=== PATIENT | male | born 1945 | race Caucasian/White ===

== ENCOUNTER 2018-03-28 11:46 | Inpatient (IN) | payer MEDICARE, OTHER ==
[~2018-03-28] VITALS: Ht 175.3 cm; Wt 65.8 kg
--- NOTE | ~2018-03-28 | CON ---
[address] [address] CONSULTATION Name: CHRISTIANO PARSONS V Room: [address] IN .R.#: [id number] Admission: 03/28/18 Attend Phys: Barb Smith MD Discharge: Date of : 41 Report #: [id number] THIS REPORT FOR: //name// CC: Barb Dan DATE OF SERVICE: 03/29/2018 HISTORY OF PRESENT ILLNESS: The patient is a 72-year-old male who came to the Emergency Room complaining of bilateral lower extremity weakness and change in speech. The patient's son is in the room. Apparently, the patient has a history of depression and is receiving transcranial magnetic stimulation. He is approximately assisted through his treatments when he woke up the morning of admission, he felt unsteady and weak. The patient denies any numbness or tingling in the extremities. He continues to have some difficulty with his speech, although this has improved as well. The patient mentioned to me that perhaps this change in speech was secondary to anxiety, but he also wonders if it could be a side effect of the transcranial magnetic stimulation. PAST MEDICAL HISTORY: Hyperlipidemia, depression, gastroesophageal reflux, hiatal hernia. PAST SURGICAL HISTORY: Tonsillectomy. MEDICATIONS: Multivitamin daily, vitamin D 400 units daily, Seroquel 50 mg at bedtime, simvastatin 10 mg in the evening, temazepam 45 mg at bedtime, alprazolam 0.5 mg q.i.d., Pristiq 50 mg daily, Viagra p.r.n., omeprazole 40 mg b.i.d. ALLERGIES: None. PHYSICAL EXAMINATION: VITAL SIGNS: Temperature is 36.5, pulse rate 50, respiratory rate 18, blood pressure 157/61, bedside pulse oximetry 100% on room air. LABORATORY DATA: White blood cell count 7.9, hemoglobin 16.2, hematocrit 47.1, platelet count 272,000. INR 1. Chemistry: Sodium 140, potassium 4.2, chloride 106, carbon dioxide 29, BUN 16, creatinine 1, glucose 97. Liver functions normal. Triglycerides 209. Cholesterol 165, LDL cholesterol 87, HDL cholesterol 35, B12 is 1474, folate greater than 100. TSH 0.840. NEUROLOGIC: Cranial nerves 2-12 are grossly intact. The patient had some hesitancy in his speech. Motor exam demonstrates symmetrical strength in all 4 extremities with tone and bulk normal, reflexes are symmetrical throughout. Plantar responses are flexor. Coordination reveals intact [id number] with the arms outstretched, the [place] [address] CONSULTATION Name: CHRISTIANO PARSONS V Room: [address] IN ..#: [id number] Admission: 03/28/18 Attend Phys: Barb Smith MD Discharge: Date of : 41 Report #: [id number] IMPRESSION: This patient has a change in speech. This is not neurological. It is most likely secondary to anxiety; however, the patient does plan on speaking to Dr. Posey to see if this could be a side effect of transcranial magnetic stimulation. I doubt it, but I do think it would be worthwhile for the patient to mention this to Dr. Posey. The patient went on to tell me that he has carotid artery disease. He has soft plaque and he feels that this may have brought this episode on. The MRA shows no evidence of significant stenosis of the carotid arteries, so I am not sure where the patient got the idea that he has significant carotid artery disease. At this point, no further diagnostic studies need to be done from a neurological point of view. The patient may be discharged on aspirin 325 mg daily. He needs to follow up with Dr. Posey. By: [id number] Recio DO /nt
[~2018-03-28 11:46] MED LIST: ALENDRONATE SODI5 MG PO; ALPRAZOLAM; AMOXICILLIN; CIPRO500 MG PO; LIPITOR; PRILOSEC40 MG PO; PRISTIQ100 MG; PRISTIQ50 M1 PO; RESTORIL30 MG PO; TUMS PO; UNICOMPLEX M TA1 TA1 PO; VIAGRA50 MG PO; VITAMIN D3400 UNIT PO; XANAX 0.5 MG0.5 MG PO; ZOCOR 10 MG TAB10 MG PO; [UNRECOGNIZED DRUG - OTHER] PO
[2018-03-28 11:51] VITALS: BP 169/70
[2018-03-28 12:10] LABS: ABSOLUTE BASOPHILS 0.1 thou/uL (0.0-0.2); ABSOLUTE EOSINOPHILS 0.2 thou/uL (0.0-0.7); ABSOLUTE LYMPHOCYTES 1.7 thou/uL (0.8-5.3); ABSOLUTE MONOCYTES 0.9 thou/uL (0.0-1.2); ABSOLUTE NEUTROPHILS 5.1 thou/uL (1.6-8.1); BASOPHILS 0.7 %; EOSINOPHILS 2.3 %; HEMATOCRIT 47.1 % (42.0-52.0); HEMOGLOBIN 16.2 gm/dL (14.0-18.0); LYMPHOCYTES 21.3 %; MCH 32.3 pg (26.0-34.0); MCHC 34.5 g/dL (28.0-37.0); MCV 93.7 fL (80.0-100.0); MONOCYTES 11.2 %; MPV 7.6 fl. (7.2-11.1); NUCLEATED RBCS 0 /100WBC; PLATELET COUNT* 272 thou/uL (150-400); POLYS 64.5 %; RBC 5.03 mil/uL (4.50-6.00); RDW-CV 13.1 % (10.5-14.5); WBC 7.9 thou/uL (4.0-11.0)
[2018-03-28] MEDS ORDERED: SEROQUEL 50 MG50 MG PO (12:13)
[2018-03-28] MEDS ORDERED: [UNRECOGNIZED DRUG - OTHER] PO (12:18)
[2018-03-28 12:19] LABS: APTT 27.2 Seconds (25.0-31.3); PROTIME 10.2 Seconds (9.20-11.50)
[2018-03-28 12:20] LABS: ANION GAP 7 mmol/L (7-16); BUN 21 mg/dL (7-18); CALCIUM 9.7 mg/dL (8.5-10.1); CHLORIDE 104 mmol/L (98-107); CO2 31 mmol/L (21-32); CREATININE 1.1 mg/dL (0.6-1.3); GLUCOSE 54 mg/dL (70-99); SODIUM 142 mmol/L (136-145)
[2018-03-28 12:24] LABS: ALBUMIN 4.1 g/dL (3.4-5.0); ALKALINE PHOSPHATASE 128 U/L (46-116); SGOT 17 U/L (15-37); SGPT 26 U/L (30-65); TOTAL BILIRUBIN 0.3 mg/dL (<0.1-1.0); TOTAL PROTEIN 8.4 g/dL (6.4-8.2); TROPONIN-I LEVEL <0.06 ng/mL (<0.06)
[2018-03-28 15:52] LABS: % SATURATION 41 % (20-39); IRON 152 ug/dL (50-175)
[2018-03-28 15:55] VITALS: BP 165/80
--- NOTE | 2018-03-28 16:02 | EKG ---
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
[2018-03-28 16:07] VITALS: BP 175/89
--- NOTE | 2018-03-28 17:59 | 2DMMODE ---
[place] [address] 2 D/M-MODE ECHOCARDIOGRAM Name: CHRISTIANO PARSONS V Room: [address] IN [facility]#: [id number] Admission: 03/28/18 Attend Phys: Barb Smith, Discharge: Date of : 41 Date of Service: 03/28/18 1759 Report #: [id number] THIS REPORT FOR: //name// APPROVED REPORT Study performed: 03/28/2018 15:54:09 EXAM: Comprehensive 2D, Doppler, and color-flow Echocardiogram Patient Location: In-Patient Room #: 220 Status: routine BSA: 1.83 HR: 51 bpm BP: 175/89 mmHg Rhythm: NSR Other Information Study Quality: Excellent Indications Bradycardia 2D Dimensions IVSd: 9.22 (7-11mm) LVOT Diam: 19.84 (18-24mm) LVDd: 46.99 mm PWd: 10.38 (7-11mm) Ascending Ao: 31.21 (22-36mm) LVDs: 35.27 (25-40mm) Aortic Root: 35.74 mm Volumes Left Atrial Volume (Systole) LA ESV Index: 26.10 mL/m2 Aortic Valve AoV Peak Jamar.: 0.99 m/s AO Peak Gr.: 3.95 mmHg LVOT Max P.94 mmHg AO Mean Gr.: 2.04 mmHg LVOT Mean P.14 mmHg LVOT Max V: 0.86 m/s AO V2 VTI: 22.11 cm LVOT Mean V: 0.48 m/s ANAI (VTI): 2.61 cm2 LVOT V1 VTI: 18.66 cm AI [place]: 1.33 m/s2 AI PHT: 826.06 ms Mitral Valve E/A Ratio: 1.04 [place] [address] 2 D/M-MODE ECHOCARDIOGRAM Name: CHRISTIANO PARSONS V Room: [address] IN .R.#: [id number] Admission: 03/28/18 Attend Phys: Barb Smith, Discharge: Date of : 41 Date of Service: 03/28/18 1759 Report #: [id number] MV Decel. Time: 194.76 ms MV E Max Jamar.: 0.60 m/s MV PHT: 56.48 ms MVA (PHT): 3.90 cm2 TDI E/Lateral E': 5.00 E/Medial E': 6.00 Medial E' Jamar.: 0.10 m/s Lateral E' Jamar.: 0.12 m/s Pulmonary Valve PV Peak Jamar.: 0.67 m/s PV Peak Gr.: 1.77 mmHg Tricuspid Valve RAP Estimate: 5.00 mmHg TR Peak Gr.: 22.41 mmHg RVSP: 27.00 mmHg PA Pressure: 27.00 mmHg Left Ventricle The left ventricle is normal size. There is normal LV segmental wall motion. There is normal left ventricular wall thickness. Left ventricular systolic function is normal. The left ventricular ejection fraction is within the normal range. LVEF is 50-55%. The left ventricular diastolic function is normal. Right Ventricle The right ventricle is normal size. The right ventricular systolic function is normal. Atria The left atrium size is normal. The right atrium size is normal. Aortic Valve The aortic valve is normal in structure. Mild aortic regurgitation. There is no aortic valvular stenosis. Mitral Valve The mitral valve is normal in structure. Mild mitral regurgitation. No evidence of mitral valve stenosis. Tricuspid Valve The tricuspid valve is normal in structure. Mild tricuspid regurgitation. No pulmonary hypertension[place] [address] 2 D/M-MODE ECHOCARDIOGRAM Name: JAQUELINE,CHRISTIANO V Room: [address] IN [facility]#: [id number] Admission: 03/28/18 Attend Phys: Barb Smith, Discharge: Date of : 41 Date of Service: 03/28/18 1759 Report #: [id number] The pulmonary valve is normal in structure. There is no pulmonic valvular regurgitation. Great Vessels The aortic root is normal in size. IVC is normal in size and collapses >50% with inspiration. Pericardium There is no pericardial effusion. <Conclusion> LVEF is 50-55%. Mild mitral regurgitation. Mild aortic regurgitation. <ELECTRONICALLY SIGNED> By: Curtis Hunt MD, FACC 03/28/181758 58 58 Curtis Hunt MD, FACC /INF
[2018-03-28 20:00] VITALS: BP 151/73
[2018-03-29] VITALS: BP 116/61
[2018-03-29 04:00] VITALS: BP 121/61
[2018-03-29 06:20] LABS: ALBUMIN 3.2 g/dL (3.4-5.0); ALKALINE PHOSPHATASE 106 U/L (46-116); ANION GAP 5 mmol/L (7-16); BUN 16 mg/dL (7-18); CALCIUM 8.5 mg/dL (8.5-10.1); CHLORIDE 106 mmol/L (98-107); CHOLESTEROL 165 mg/dL (<200); CO2 29 mmol/L (21-32); GLUCOSE 97 mg/dL (70-99); HDL CHOLESTEROL 37 mg/dL (>40); LDL CHOLESTEROL 87 mg/dL (<100); POTASSIUM 4.2 mmol/L (3.5-5.1); SGOT 12 U/L (15-37); SGPT 21 U/L (30-65); SODIUM 140 mmol/L (136-145); TC:HDL 4.5 Ratio (Not establshd); TOTAL BILIRUBIN 0.3 mg/dL (<0.1-1.0); TOTAL PROTEIN 6.2 g/dL (6.4-8.2); TRIGLYCERIDE 209 mg/dL (<150); VLDL 42 mg/dL (<40)
[2018-03-29 06:24] LABS: SERUM ASSESSMENT Clear
[2018-03-29 08:00] VITALS: BP 142/62
--- NOTE | 2018-03-29 10:08 | CON ---
[address] [address] CONSULTATION Name: CHRISTIANO PARSONS V Room: [address] IN .R.#: [id number] Admission: 03/28/18 Attend Phys: Barb Smith MD Discharge: Date of : 41 Report #: [id number] THIS REPORT FOR: //name// CC: Barb Dan MD DATE OF SERVICE: 03/28/2018 HISTORY OF PRESENT ILLNESS: The patient is a 72-year-old white male who I was asked to see in the hospital today after he was noted to be bradycardic. The history is obtained from the patient. Unfortunately, there does not have a lot of old records available. The patient states that his mother of heart attack when she was 70. In the past, he has had a cardiac workup in his 40s that included a Holter monitor and treadmill test. He was told there was no evidence of heart disease. He does not exercise on a regular basis. He has a long history of depression. He is currently receiving left temporal lobe EMG therapy by a psychiatrist. This seems to have helped his depression. Recently, he has had not much of an appetite. He was doing well until 8:00 this morning. He got out of the shower and then noticed that his left foot was drifting to the side. He then noticed his right foot was drifting to the side. He seemed to stumble around. He denied any blurred vision, weakness of his arms. He notes he has had some slurred speech for the past month. He then went to have an EMG therapy on his brain by his psychiatrist. At the psychiatrist, his blood pressure was noted to be elevated. He was instructed to come to the Emergency Room here at [facility]. In the Emergency Room, there was concern he might be having a TIA. He was admitted for further evaluation and treatment. He denied any recent chest pain, shortness of breath, palpitations, syncope. He denied ever been told he had a slow heart rate in the past. PAST MEDICAL HISTORY: He has had previous prostate surgery, tonsillectomy. No history of hypertension. Does have hyperlipidemia. No history of diabetes. MEDICATIONS ON ADMISSION: Consist of Zocor, Xanax as needed. He takes a sleeping pill occasionally. ALLERGIES: No known drug allergies. FAMILY HISTORY: His mother of heart attack when she was 70. SOCIAL HISTORY: He is . He and his live in [place]. 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 Quit smoking years ago. Occasionally drinks alcohol. REVIEW OF SYSTEMS: He has had no history of stroke, asthma. He had a peptic ulcer years ago. He has had a kidney stone. No cancer. [place] [address] CONSULTATION Name: CHRISTIANO PARSONS V Room: [address] IN [facility]#: [id number] Admission: 03/28/18 Attend Phys: Barb Smith MD Discharge: Date of : 41 Report #: [id number] chronic skin condition. PHYSICAL EXAMINATION: GENERAL: Revealed an elderly male, lying in bed, he appeared in no acute distress. VITAL SIGNS: He had a blood pressure of 160/70, his pulse is 48. He was afebrile. HEENT: He was anicteric. Conjunctivae pink. Mucous membranes are moist. NECK: Veins do not appear distended. No carotid bruits. Neck supple. CHEST: Clear to auscultation. CARDIAC: Regular bradycardia, no significant murmur. ABDOMEN: Soft, nontender. EXTREMITIES: Had no edema. Posterior tibial pulse 2+ bilaterally. SKIN: Warm and dry. NEUROLOGIC: Nonfocal. LYMPHATIC: No adenopathy. MUSCULOSKELETAL: No joint effusion. LABORATORY DATA: His ECG shows a sinus bradycardia with voltage criteria for left ventricular hypertrophy, but no ST or T-wave changes. On the monitor, he was noted to have a rare PVC. Workup in the Emergency Room today, sodium 142, creatinine 1.1, glucose is only 91. Liver function studies were normal. Total protein was 8.4, which is mildly elevated. Albumin 4.1. Troponin 0.06. TSH 0.8. B12 1474. White blood cell count 7.9, hemoglobin 16.2. X-rays in the Emergency Room today, he had a CT scan of the head without contrast, which showed atrophy, microvascular changes. Portable chest x-ray, no acute abnormality. The patient actually had a previous episode of hematemesis in 2014, underwent EGD and was found to have a small hiatal hernia, small ulcer. IMPRESSION AND RECOMMENDATIONS: 1. Sinus bradycardia. If symptomatic, would recommend a pacemaker. 2. History of depression. 3. Hyperlipidemia. The patient is on a statin drug. 4. Uncontrolled movements of his feet. Possible transient ischemic attack. 5. History of peptic ulcer disease. 6. History of kidney stone. <ELECTRONICALLY SIGNED> By: Curtis Hunt MD, [facility] 03/29/18 1008 1642 192Curtis Hunt MD, FACC /nt
[2018-03-29 12:32] VITALS: BP 157/61
[2018-03-29 16:11] VITALS: BP 125/71
[2018-03-29 19:40] VITALS: BP 128/86
[2018-03-30] VITALS: BP 131/65
[2018-03-30 02:05] LABS: GLYCOHEMOGLOBIN (HGB A1C) 5.2 % (4.8-5.6)
[2018-03-30 04:00] VITALS: BP 135/69
[2018-03-30 08:20] VITALS: BP 147/76
[2018-03-30] MEDS ORDERED: ASA5UEC PO (10:59)
[2018-03-30] MEDS ORDERED: LIPITOR 20 MG T20 M1 PO (11:00)
[2018-03-30 11:18] VITALS: BP 147/76
[2018-03-30] MEDS ORDERED: ADULT ASPIRIN R81 MG PO (11:38)
[2018-03-30] MEDS ORDERED: PLAVIX 75 MG TA75 M1 PO (11:38)
[2018-03-30 12:04] VITALS: BP 126/79
== END 2018-03-30 12:59 | disposition home or self-care (01) | DRG 68 ==
LOC: M.ERS 11:46 → M.2W 13:14 → M.TBA-ER 13:14 → M.2W 15:56
PROVIDERS: Emergency Medicine Emergency Medical Services; ADMIT Internal Medicine
DX: I65.23 Occlusion and stenosis of bilateral carotid arteries (principal); G93.40 Encephalopathy, unspecified; R00.1 Bradycardia, unspecified; E78.00 Pure hypercholesterolemia, unspecified; F32.9 Major depressive disorder, single episode, unspecified; K21.9 Gastro-esophageal reflux disease without esophagitis; E16.2 Hypoglycemia, unspecified; I10 Essential (primary) hypertension; E78.5 Hyperlipidemia, unspecified; Z87.11 Personal history of peptic ulcer disease; Z87.442 Personal history of urinary calculi; Z87.891 Personal history of nicotine dependence; Z79.899 Other long term (current) drug therapy; Z82.49 Family history of ischemic heart disease and other diseases of the circulatory system

== ENCOUNTER 2021-02-23 04:50 | Emergency (ER) | payer MEDICARE, OTHER ==
[~2021-02-23] VITALS: Ht 177.8 cm; Wt 62.6 kg
[~2021-02-23 04:50] MED LIST changes: +ADULT ASPIRIN R81 MG PO; +ASA5UEC PO; +LIPITOR 20 MG T20 M1 PO; +PLAVIX 75 MG TA75 M1 PO; +SEROQUEL 50 MG50 MG PO; +[UNRECOGNIZED DRUG - OTHER] PO
[2021-02-23] MEDS ORDERED: FLOMAX0.4 MG (05:06)
[2021-02-23] MEDS ORDERED: BRINTELLIX10 MG (05:07)
[2021-02-23] MEDS ORDERED: AMBIEN 10 MG TA10 MG (05:07)
[2021-02-23] MEDS ORDERED: CENTRUM SILVER1 EAC5 (05:08)
[2021-02-23] MEDS ORDERED: PRILOSEC OTC20 MG (05:08)
[2021-02-23] MEDS ORDERED: FINASTERIDE5 MG (05:08)
[2021-02-23] MEDS ORDERED: CIPROFLOXIN HC2.5 M1 OPHTHALMIC (05:45)
[2021-02-23 06:00] VITALS: BP 144/78
== END 2021-02-23 06:00 | disposition home or self-care (01) ==
LOC: M.ERS 04:50
DX: S05.01XA Injury of conjunctiva and corneal abrasion without foreign body, right eye, initial encounter (principal); E78.00 Pure hypercholesterolemia, unspecified; F32.9 Major depressive disorder, single episode, unspecified; K21.9 Gastro-esophageal reflux disease without esophagitis; Z90.89 Acquired absence of other organs; Z79.899 Other long term (current) drug therapy; X58.XXXA Exposure to other specified factors, initial encounter; Y93.89 Activity, other specified; Y92.89 Other specified places as the place of occurrence of the external cause; Y99.8 Other external cause status